=== PATIENT | female | born 1995 | race Caucasian/White ===

== ENCOUNTER 2021-09-06 10:40 | Emergency (ER) | payer OTHER, SELFPAY ==
--- NOTE | 2021-09-06 10:42 | ED.EAR ---
HPI - Ear Problem General Chief complaint: Ear Stated complaint: EARACHE Time Seen by Provider: 09/06/21 10:42 Source: patient, RN notes reviewed and old records reviewed Mode of arrival: ambulatory Limitations: no limitations History of Present Illness HPI Narrative: 26-year-old male presents to the [facility] with complaints of right ear pain since yesterday. For the last week has had sinus issues. Took Aleve last night, Reports taking Zyrtec-D for the sinus congestion. Reports thin brown drainage with no decrease in pain. Denies chest pain or abdominal pain. No blurry vision change in vision. Denies headaches. MD Complaint: ear pain Location: right ear Related Data Allergies Allergy/AdvReac Type Severity Reaction Status Date / Time No Known Allergies Allergy Verified 09/06/21 10:50 Review of Systems Review of Systems: All systems reviewed & are unremarkable except as noted in HPI and below Constitutional: Constitutional: Reports no additional constitutional complaints, Denies chills and Denies fever(s) Eyes: Eyes: Reports no additional eye complaints, Denies change in vision and Denies photophobia ENT: Reports as per HPI, Denies change in voice, Denies dental pain, Denies vertigo, Denies dizziness, Reports nasal congestion, Denies sore throat and Denies throat swelling Comments: Ear pain right Cardiovascular: Cardiovascular: Reports no additional cardiovascular complaints, Denies chest pain and Denies dyspnea Respiratory: Respiratory: Reports no additional respiratory complaints, Denies cough and Denies dyspnea Gastrointestinal: Gastrointestinal: Reports no additional gastrointestinal complaints, Denies abdominal pain, Denies nausea and Denies vomiting Musculoskeletal: Musculoskeletal: Reports no additional musculoskeletal complaints and Denies myalgias Integumentary/Breasts: Skin/Breast: Reports system reviewed and no additional complaints, except as docu Neurologic: Reports system reviewed and no additional complaints, except as documented, Denies vertigo, Denies dizziness and Denies headache(s) Psychiatric: Psychiatric: Reports no additional psychiatric complaints Allergic/Immunologic: Allergic/Immunologic: Reports no additional allergic/immunologic complaints and Denies throat swelling PMFSH Past Medical History Medical History Adjustment disorder with mixed anxiety and depressed mood Concussion (~2011) IUD contraception Mirena in ~2018 OCD (obsessive compulsive disorder) Pes planus Scoliosis Social phobia Surgical History Surgical History History of tonsillectomy (~2005) Family History Family History Other Family history of thyroid disease Social History Social History Alcohol intake: never Comments At the time of my signature, I reviewed and agree with the nursing past medical, surgical, social, and family history. There is no relevant family history pertinent to the patient complaint. Exam Const: General: healthy appearing, no acute distress and alert Nutritional Appearance: well nourished and thin Orientation/consciousness: patient oriented x3 Limitations: no limitations HENMT: Head: normal to inspection Ears: external ears normal, TM normal on the left, EAC's normal, mastoids normal and TM abnormal bulging on the right, erythematous on the right and with loss of landmarks on the right; not perforated General nose exam: Normal external nose present, Normal nasal mucous membranes and turbinates present and No nasal discharge present Face and sinus: normal facial exam Mouth: Yes Normal oral and palatal mucosa present Throat: posterior oropharynx normal, uvula midline, tonsils absent and no uvular edema Eyes: Conjunctivae: conjunctivae normal Pupils: Equal, round and reactive pupils present
[2021-09-06 10:46] VITALS: BP 109/79; PULSE 82; RESP 12; TEMP 36.3; O2SAT 100
== END 2021-09-06 11:00 | disposition home or self-care (01) ==
PROVIDERS: Emergency Provider Nurse Practitioner; PCP Family Medicine
DX: H66.001 Acute suppurative otitis media without spontaneous rupture of ear drum, right ear (principal); M41.9 Scoliosis, unspecified
CPT/HCPCS: 99213; G0463